=== PATIENT | male | born 1960 | race Caucasian/White ===

== ENCOUNTER → 2022-11-10 | Outpatient (CLI) | payer OTHER ==
--- NOTE | 2022-11-11 06:16 | MR ---
EXAMINATION TYPE: MR knee RT wo con DATE OF EXAM: 11/10/2022 COMPARISON: NONE HISTORY: Right knee swelling in the pain since August 2022 due to lifting injury. Probable medial meni scal tear. Meniscal derangements per order. TECHNIQUE: Multiplanar, multisequence images of the knee is performed without IV contrast. FINDINGS: MEDIAL MENISCUS: Subtle oblique increased signal medial meniscus seen best on image 22 through the ce ntral body and posterior horn extends to inferior articular surface. LATERAL MENISCUS: Anterior and posterior horns are intact without tear. CRUCIATE LIGAMENTS: The anterior and posterior cruciate ligaments are intact and unremarkable. COLLATERAL LIGAMENTS: The medial collateral ligament and lateral collateral ligament complex are inta ct and unremarkable. EXTENSOR MECHANISM: Visualized quadriceps and patellar tendons are intact. EFFUSION: Small size suprapatellar joint effusion. POPLITEAL CYST: No popliteal/woodward cyst. TRICOMPARTMENT SPACES: Moderate to severe narrowing patellofemoral compartment with [id number] spurring. Mild narrowing and spurring medial and lateral tibiofemoral compartments. CARTILAGE: Chondromalacia patella with significant cartilaginous loss along the posterior patellar po le. BONE MARROW SIGNAL: No focal abnormal marrow signal is appreciated. OTHER: Focal fluid anterior superficial prepatellar region extending inferiorly. IMPRESSION: 1. Confirmation of full-thickness tear medial meniscus involving central body and posterior horn as s uspected clinically. 2. Moderate to severe patellofemoral joint arthropathy as detailed above. 3. Small suprapatellar joint effusion.
== END | disposition home or self-care (01) ==
LOC: RADMRIMAIN 21:30
PROVIDERS: ATTEND Orthopaedic Surgery Sports Medicine
DX: S83.241A Other tear of medial meniscus, current injury, right knee, initial encounter (principal); M17.11 Unilateral primary osteoarthritis, right knee; M23.331 Other meniscus derangements, other medial meniscus, right knee; M25.461 Effusion, right knee; X58.XXXA Exposure to other specified factors, initial encounter